=== PATIENT | male | born 1950 | race Caucasian/White ===

== ENCOUNTER 2017-11-18 23:30 | Emergency (ER) | END 2017-11-19 01:55 | disposition home or self-care (01) ==

== ENCOUNTER 2018-12-23 12:27 | Day surgery (SDC) | payer OTHER ==
[~2018-12-23] VITALS: Ht 175.3 cm; Wt 73.1 kg
[~2018-12-23 12:27] MED LIST: METO10TA92 PO
[2018-12-23] MEDS ORDERED: OMEPRAZOLE (14:23)
[2018-12-23] MEDS ORDERED: LOSARTAN (14:23)
[2018-12-23 14:59] VITALS: BP 136/87; PULSE 78; RESP 19
[2018-12-23] MEDS ORDERED: MIDAZOLAM 1 MG/ML 2 ML INJ ONE ×3 (15:36)
[2018-12-23] MEDS ORDERED: FENTAnyl 50 MCG/ML VIAL ONE (15:36)
[2018-12-23 15:51] VITALS: BP 105/76; PULSE 70; RESP 13
== END 2018-12-23 15:56 | disposition home or self-care (01) ==
LOC: GIL 12:27
PROVIDERS: ATTEND Internal Medicine Gastroenterology
DX: Z12.11 Encounter for screening for malignant neoplasm of colon (principal); D12.5 Benign neoplasm of sigmoid colon; K64.8 Other hemorrhoids
CPT/HCPCS: 45385; 88305; J2250; J3010